=== PATIENT | male | born 1960 | race Caucasian/White ===

== ENCOUNTER 2022-07-24 16:25 | Observation (INO) | payer BC ==
[2022-07-24] MEDS ORDERED: cefTRIAXone 1 GM Vial IVPUSH SCH (17:00)
[2022-07-24] MEDS ORDERED: cefTRIAXone 1 GM in Sodium Chloride 0.9% 50 ML IV SCH (17:00)
[2022-07-24] MEDS: Sodium Chloride 0.9% 10 ML Syringe FLUSH PRN ×2 (17:14→17:31)
[2022-07-24] MEDS ORDERED: Enoxaparin 40 MG/0.4 ML Syringe SUBCUT SCH (17:30)
[2022-07-24] MEDS ORDERED: VANCOmycin 1.75 GM/350 ML 1.75 GM in Premix Bag 1 BAG IV ONE (18:00)
[2022-07-24 18:01] LABS: ESTIMATED GFR 68 mL/min (>60)
[2022-07-25] MEDS ORDERED: Pantoprazole 40 MG Tab.CR PO SCH (06:00)
[2022-07-25] MEDS ORDERED: Sulfamethoxazole/Trimethoprim 800-160 MG Tab PO SCH (10:15)
[2022-07-25] MEDS ORDERED: VANCOmycin 1.5 GM/300 ML 1.5 GM in Premix Bag 1 BAG IV SCH (18:00)
== END 2022-07-25 11:40 | disposition home or self-care (01) ==
LOC: FB.MS 16:25
PROVIDERS: ADMIT Student in an Organized Health Care Education/Training Program; ATTEND Family Medicine
DX: M71.122 Other infective bursitis, left elbow (principal); Z79.899 Other long term (current) drug therapy
CPT/HCPCS: 36415; 80048; 80202; 85025; 86140; 96365; 96366; 96375; A9270; G0378; G0379; J0696; J3370; J3490

== ENCOUNTER → 2025-04-27 | Day surgery (SDC) | payer BC, MEDICARE ==
[~2025-04-27] MED LIST: Lactated Ringers 1,000 ML IV SCH; Lidocaine 2% 100 MG/5 ML Syringe IVPUSH ONE; Propofol 200 MG/20 ML SDV IV ONE; Sodium Chloride 0.9% 10 ML Syringe FLUSH PRN
[2025-04-27] MEDS: Lactated Ringers 1,000 ML IV SCH (07:58)
== END | disposition home or self-care (01) ==
LOC: FB.SDS 06:58
PROVIDERS: ATTEND Surgery
DX: K57.30 Diverticulosis of large intestine without perforation or abscess without bleeding (principal); I48.91 Unspecified atrial fibrillation; Z87.891 Personal history of nicotine dependence; Z79.01 Long term (current) use of anticoagulants; Z79.899 Other long term (current) drug therapy
CPT/HCPCS: 00811; J2704; J7120